=== PATIENT | male | born 1970 | race Caucasian/White ===

== ENCOUNTER → 2020-04-24 | Outpatient (CLI) | payer OTHER ==
[~2020-04-24] MED LIST: BIAXIN 500 MG500 M2 PO; FLONASE16 GM NS; FLOXIN OTI0.3 %/5 ML OT; LOVAZA1000 MG PO; MUCINEX D TABL1 EACH PO; NIASPAN ER 101000 M1 PO; NORCO 5-325 TA1 EACH PO; PREVACID30 M1 PO
--- NOTE | ~2020-04-24 | CARD ---
[facility] [address] [place] [address] CARDIAC CATH REPORT Name: NIKITATERRANCE Enedina Room: [facility].#: [id number] Admission: 04/24/20 Attend Phys: ELIZABETH Granados Discharge: Date of : 68 Report #: [id number] THIS REPORT FOR: cc: Izabella Sorensen Stefany RNP ~ Brooks Murillo MD [facility] DATE OF SERVICE: 04/24/2020 EXERCISE STRESS TEST TITLE OF PROCEDURE: Diogo protocol Exercise stress test. INDICATIONS: Shortness of breath. DESCRIPTION OF PROCEDURE: The patient was exercised on a Diogo protocol exercise stress test from a pretest heart rate of 79, blood pressure 114/80. PROCEDURE: The patient was able to exercise for a total of 10 minutes achieving a peak heart rate of 160 with a peak blood pressure 164/58. In recovery, the patient had a heart rate of 100, blood pressure 126/56. The patient denied chest pain with exercise. It was terminated because of shortness of breath. RESULTS: The patient's resting ECG showed a sinus rhythm with no significant ST or T-wave changes noted at baseline. With exercise, there were no arrhythmias noted. There was only rare PVC noted. At peak exercise, the patient was noted to have J-point depression, but there was no significant ST-segment depression noted at 80 milliseconds after the J-point. IMPRESSION: 1. Exercise tolerance adequate. 2. Clinical response, nonischemic. 3. Electrocardiogram response, nonischemic. This exercise stress test was felt to represent a low risk for predicting future cardiac events. By: [id number] Murillo MD, FACC /nt
== END ==
LOC: M.CRD 14:21
PROVIDERS: ATTEND Nurse Practitioner Family
DX: R06.00 Dyspnea, unspecified (principal)